=== PATIENT | male | born 1960 | race Caucasian/White ===

== ENCOUNTER → 2023-11-23 16:43 | Outpatient (REF) | payer BC, SELFPAY | LOC: RCS 16:43 | PROVIDERS: ATTENDING PHYSICIAN Registered Nurse | DX: R01.1 Cardiac murmur, unspecified (principal); I51.7 Cardiomegaly; I35.1 Nonrheumatic aortic (valve) insufficiency; I34.0 Nonrheumatic mitral (valve) insufficiency | CPT/HCPCS: 93306 ==

== ENCOUNTER → 2024-03-14 16:02 | Outpatient (REF) | payer BC, SELFPAY | LOC: HWRAD 16:02 | PROVIDERS: ATTENDING PHYSICIAN Registered Nurse | DX: M79.10 Myalgia, unspecified site (principal); M54.50 Low back pain, unspecified | CPT/HCPCS: 72110 ==